=== PATIENT | male | born 1995 | race Caucasian/White ===

== ENCOUNTER 2017-11-27 14:57 | Emergency (ER) | payer OTHER ==
[2017-11-27] MEDS ORDERED: Lidocaine 1% 10 ML MDV INJECT ONE (15:44)
[2017-11-27] MEDS ORDERED: Bupivacaine 0.5% 10 ML SDV INJECT ONE (15:44)
[2017-11-27] MEDS ORDERED: Diphtheria,Pertussis(Acell),Tetanus Vaccine 0.5 ML Syringe IM ONE (15:45)
--- NOTE | 2017-11-27 15:45 | EDM.PDOC ---
ED HPI GENERAL MEDICAL PROBLEM - General Chief Complaint: Laceration Stated Complaint: PT CUT TUMB ON RT HAND Time Seen by Provider: 11/27/17 15:41 Source of Information: Reports: Patient History Limitations: Reports: No Limitations - History of Present Illness INITIAL COMMENTS - FREE TEXT/NARRATIVE: HISTORY AND PHYSICAL: History of present illness: [Patient was installing a new propane tank when he slipped on the ice hitting the palmar surface of his right thumb on the top of the propane tank. Complains of pain and bleeding to his right thumb. Denies numbness and tingling. Complains of tenderness. Cannot remember the date of his last tetanus. ] Review of systems: As per history of present illness and below otherwise all systems reviewed and negative. Past medical history: As per history of present illness and as reviewed below otherwise noncontributory. Surgical history: As per history of present illness and as reviewed below otherwise noncontributory. Social history: No reported history of drug or alcohol abuse. Family history: As per history of present illness and as reviewed below otherwise noncontributory. Physical exam: HEENT: Atraumatic, normocephalic. Extremities: 2 cm jagged laceration to pad of right thumb. Neurovascular unremarkable. Capillary Refill less than 2 seconds. No other injuries or abnormality. Neuro: Awake, alert, oriented. Motor and sensory unremarkable throughout. Exam nonfocal. Therapeutics: [Adacel] Impression: [R thumb laceration] Plan: [Digital block is placed and wound is closed. See procedure note. Rx sent to [facility] for cephalexin 500 mg #30 sig 1 by mouth 3 times a day 0 refills. Strict tern precautions are reviewed with the patient.] Definitive disposition and diagnosis as appropriate pending reevaluation and review of above. RIGHT THUMB Pain Score (Numeric/FACES): 2 - Related Data Allergies Allergy/AdvReac Type Severity Reaction Status Date / Time No Known Allergies Allergy Verified 11/27/17 15:04 Home Meds: Home Meds Cephalexin 500 mg PO TID 10 Days #30 tablet 11/27/17 [Rx] Past Medical History - Past Health History Medical/Surgical History: Denies Medical/Surgical History Social & Family History - Family History Family Medical History: Noncontributory - Tobacco Use Smoking Status *Q: Never Smoker - Caffeine Use Caffeine Use: Reports: Soda - Recreational Drug Use Recreational Drug Use: No ED ROS GENERAL - Review of Systems Review Of Systems: ROS reveals no pertinent complaints other than HPI. ED EXAM, SKIN/RASH Exam: See Below ED SKIN PROCEDURES - Laceration/Wound Repair Right Finger Lac/Wound length In cm: 2 Appearance: Subcutaneous, Mildly Contaminated Distal NVT: Neuro & Vascular Intact, No Tendon Injury Anesthetic Type: Digital Local Anesthesia - Lidocaine (Xylocaine): 1% Plain Local Anesthetic Volume: 5cc Skin Prep: Chlorhexidine (Hibiciens), Saline, Sterile Drape Saline Irrigation (cc's): 100 Exploration/Debridement/Repair: Wound Explored, Minimal Debridement, No Foreign Material Found Closed with: Sutures Suture Size: 4-0 # of Sutures: 7 Suture Type: Nylon Sterile Dressing Applied: Provider Tetanus Status Addressed: Yes Complications: No Course - Vital Signs Last Recorded V/S: Last Vital Signs Temp 98.9 F 11/27/17 15:05 Pulse 110 H 11/27/17 15:05 Resp 18 11/27/17 15:05 BP 140/98 H 11/27/17 15:05 Pulse Ox 98 11/27/17 15:05 - Orders/Labs/Meds Orders: Active Orders 24 hr Category Date Time Status Vaccines to be Administered [RC] PER UNIT ROUTINE Care 11/27/17 15:45 Active Meds: Medications Discontinued Medications Generic Name Dose Route Start Last Admin Trade Name Aram PRN Reason Stop Dose Admin Bacitracin 1 dose 11/27/17 16:51 Bacitracin Oint 1 Gm TOP 11/27/17 16:52 ONETIME ONE Bupivacaine HCl 10 ml 11/27/17 15:44 11/27/17 16:27 Sensorcaine-Mpf 0.5% INJECT 11/27/17 15:45 Not Given ONETIME ONE Diphtheria/Tetanus/Acell Pertussis 0.5 ml 11/27/17 15:45 11/27/17 16:27 Adacel IM 11/27/17 15:46 0.5 ml .ONCE ONE Administration Lidocaine HCl 10 ml 11/27/17 15:44 11/27/17 16:27 Xylocaine 1% INJECT 11/27/17 15:45 Not Given ONETIME ONE Lidocaine HCl Confirm 11/27/17 15:49 11/27/17 16:27 Xylocaine 1% Administered 11/27/17 15:50 Not Given Dose 20 ml .ROUTE .STK-MED ONE Departure - Departure Time of Disposition: 16:47 Disposition: Home, Self-Care 01 Condition: Good Clinical Impression: Laceration of right thumb - Discharge Information Prescriptions: Cephalexin 500 mg PO TID 10 Days #30 tablet Instructions: Laceration Care, Adult Referrals: PCP,None [Primary Care Provider] - Forms: ED Department Discharge Additional Instructions: The following information is given to patients seen in the emergency department who are being discharged to home. This information is to outline your options for follow-up care. We provide all patients seen in our emergency department with a follow-up referral. The need for follow-up, as well as the timing and circumstances, are variable depending upon the specifics of your emergency department visit. If you don't have a primary care physician on staff, we will provide you with a referral. We always advise you to contact your personal physician following an emergency department visit to inform them of the circumstance of the visit and for follow-up with them and/or the need for any referrals to a consulting specialist. The emergency department will also refer you to a specialist when appropriate. This referral assures that you have the opportunity for follow-up care with a specialist. All of these measure are taken in an effort to provide you with optimal care, which includes your follow-up. Under all circumstances we always encourage you to contact your private physician who remains a resource for coordinating your care. When calling for follow-up care, please make the office aware that this follow-up is from your recent emergency room visit. If for any reason you are refused follow-up, please contact the [facility] emergency department at and asked to speak to the emergency department charge nurse. [facility] [address] [place] [id number] Follow-up with your local primary care provider or at the clinic listed above in 48-72 hours. Return to ER to have sutures removed in 7 days. Take antibiotics as prescribed. Tylenol, ibuprofen or naproxen as needed for discomfort. Keep clean and dry 24 hours. Then may bathe normally. Apply triple antibiotic ointment and new dressing at least twice daily. He clean and dry as much as possible. No swimming or washing dishes. Return to ER as needed as discussed. - My Orders Last 24 Hours: My Active Orders 11/27/17 15:45 Vaccines to be Administered [RC] PER UNIT ROUTINE - Assessment/Plan Last 24 Hours: My Active Orders 11/27/17 15:45 Vaccines to be Administered [RC] PER UNIT ROUTINE
[2017-11-27] MEDS ORDERED: Lidocaine 1% 20 ML MDV ONE (15:49)
[2017-11-27] MEDS ORDERED: Bacitracin Oint 1 GM U/D Packet TOP ONE (16:51)
== END 2017-11-27 17:15 | disposition home or self-care (01) ==
LOC: MW.ED 14:57
DX: S61.011A Laceration without foreign body of right thumb without damage to nail, initial encounter (principal); Z23 Encounter for immunization; W00.9XXA Unspecified fall due to ice and snow, initial encounter
CPT/HCPCS: 12001; 90471; 90715; 99282; 99283-25

== ENCOUNTER 2017-12-04 16:15 | Emergency (ER) | payer OTHER | END 2017-12-04 16:30 | disposition left against medical advice (07) | LOC: MW.ED 16:15 | DX: Z53.21 Procedure and treatment not carried out due to patient leaving prior to being seen by health care provider (principal) ==